=== PATIENT | male | born 1975 | race Caucasian/White ===

== ENCOUNTER 2020-04-18 14:23 | Inpatient (IN) | payer SELFPAY ==
[2020-04-18] VITALS (33 sets, daily range): BP systolic 119–196; BP diastolic 64–124; PULSE 60–93; RESP 16–19; TEMP 36.9–37; O2SAT 91–97; BMI 38.7
--- NOTE | 2020-04-18 15:21 | XR_ITS ---
PROCEDURE: XR CHEST PORTABLE CLINICAL HISTORY: chest pain COMPARISON: No exams were available for comparison FINDINGS: The cardiomediastinal silhouette and pulmonary vascularity are within normal limits. No lobar consolidation or collapse. There is blunting of the left CP angle which may be due to small pleural effusion or underlying pleural reaction. No acute bony abnormalities. IMPRESSION: Blunting of the left CP angle otherwise negative Dictated b Ronnie Franco MD 04/18/2020 16:24 Ronnie Franco MD in [place] 04/18/2020 16:24
--- NOTE | 2020-04-18 15:28 | HMH.HP ---
*Admission Date: 04/18/20 *Chief complaint: chest pain htn *History of present illness: 44 yr old male presents to office with c/o of chest pain for 1 month but soa and chest pain increasing. In office bp was 194/120 hr 84. Pt states his chest pain has increased and he can not work more than 1 hour before he becomes soa and tired. pt in office states left side chest pain. Has been monitoring bp at home and last evening it was 220/130 with chest pain. Pt admitted for cardiac work up and consult cardiology. [facility] recommends nipride drip and metoprol 25mg po q8, ekg and cardiac labs. [facility] History I have reviewed the patient's past medical history: Yes Medical History: Reports:: Depression, Hypertension *Have you ever received a pneumonia vaccine?: No *Have you received a flu vaccine this season?: Yes Other Surgeries: Yes: Other (cyst on tailbone) Amputation: No Fractures: No - *Social History Smoking Status: Current every day smoker Tobacco Type: cigars Alcohol Intake: never Substance Use Type: denies use *Occupational Status:: employed *Travel in the last 8 weeks: None - Psychiatric History Pschychiatric History:: Reports:: Depression Family Hx:: Stroke, Cancer Review of Systems - Review of Systems Review of systems:: pertinent systems reviewed and negative unless documented below - Constitutional Reports fatigue, Denies chills, Denies fever(s), Denies lack of energy - Eyes Denies blurry vision - ENT Denies bleeding gums, Denies neck lump - *Cardiovascular Reports chest pain, Reports chest pain at rest, Reports chest pain with activity, Reports shortness of breath, Reports shortness of breath with activity - *Respiratory Reports shortness of breath with activity, Denies wheezing - *Gastrointestinal Denies nausea, Denies vomiting - *Genitourinary Denies urinary frequency - *Musculoskeletal Denies body aches - Integumentary/Breasts Denies bleeding lesions, Denies rash - *Neurologic Denies abnormal hearing, Denies memory loss - Psychiatric Denies lack of enjoyment, Denies hopelessness - Endocrine Denies excessive sweating - Hematologic/Lymphatic Denies enlarged lymph nodes - Allergic/Immunologic Denies lip swelling Meds Home Medications Medication Instructions Recorded Confirmed Type hydroxyzine pamoate 25 mg capsule 25 mg PO TID PRN #90 cap 03/19/20 04/18/20 Rx buspirone 15 mg tablet 15 mg PO DAILY tab 04/18/20 04/18/20 History carvedilol 25 mg tablet 25 mg PO BID 04/18/20 04/18/20 History clonidine HCl 0.3 mg tablet 0.3 mg PO BID 04/18/20 04/18/20 History hydrochlorothiazide 25 mg tablet 25 mg PO DAILY 04/18/20 04/18/20 History paroxetine HCl 40 mg tablet 40 mg PO DAILY #30 tab 04/18/20 04/18/20 Rx risperidone 2 mg tablet 2 mg PO DAILY 04/18/20 04/18/20 History Allergies Allergy/AdvReac Type Severity Reaction Status Date / Time Unable to Assess Allergy Verified 04/18/20 13:21 Exam - Constitutional no acute distress, morbidly obese - *Routine HEENT Exam Head: Present: normocephalic Eye: Present: PERRL ENT: Present: mucous membranes moist - *Routine Neck Exam Present: supple. Absent: lymphadenopathy - *Routine Respiratory Exam Present: CTA bilaterally - *Routine Cardiovascular Exam Present: RRR - *Routine Abdominal Exam Present: soft, normoactive bowel sounds. Absent: tenderness - *Routine Extremities Exam Absent: cyanosis, clubbing, edema - *Routine Skin Exam Present: warm. Absent: rash - *Routine Neurological Exam Present: alert, oriented X3 - Routine Psychiatric Exam Present: normal affect Assessment and Plan (1) HTN (hypertension), benign Current visit: Yes Status: Acute Category: Medical Code(s): I10 - Essential (primary) hypertension (2) Chest pain Current visit: Yes Status: Acute Qualifiers: Chest pain type: chest pain on breathing Qualified Code(s): R07.1 - Chest pain on breathing Categor
--- NOTE | 2020-04-18 16:00 | P.CONPHA_ITS ---
[facility] Pharmacy VTE Monitoring - Patient Demographics Admission date: 04/18/20 Report Date: 04/18/20 Time: 16:00 Allergies/Adverse Reactions: Patient Allergies Unable to Assess Allergy (Verified 04/18/20 13:21) Height: 1.78 m Weight: 122.47 kg Patient Problems: Current Active Problems HTN (hypertension), benign (Acute) Chest pain (Acute) - VTE Risk Clinical Trial Participant: No - Prophylaxis VTE Prophylaxis Ordered?: Yes Types of VTE Prophylaxis: TEDS Knee High
[2020-04-18 16:05] LABS: Basophils # 0.1 K/mm3 (0-0.2); Basophils % 0.8 % (0.1-2.0); Eosinophils # 0.3 K/mm3 (0.0-0.4); Eosinophils % 3.5 % (0.1-12.0); Hematocrit 45.7 % (42.0-52.0); Hemoglobin 16.4 g/dL (14.1-18.0); Lymphocytes # 2.8 K/mm3 (0.7-4.5); Lymphocytes % 36.4 % (10-50); Mean Corpuscular Hemoglobin 31.7 pg (27.0-31.2); Mean Corpuscular Volume 88.1 fl (80-94); Mean Platelet Volume 7.5 fl (7.4-10.4); Monocytes # 0.4 K/mm3 (0.1-1.0); Monocytes % 5.6 % (1.7-9.3); Neutrophils # 4.2 K/mm3 (1.8-7.8); Neutrophils % 53.7 % (37.0-80.0); Platelet Count 227 K/mm3 (142-424); Red Blood Count 5.18 M/mm3 (4.60-6.20); Red Cell Distribution Width 13.2 % (11.5-17.5); White Blood Count 7.8 K/mm3 (4.8-10.8)
--- NOTE | 2020-04-18 16:06 | ECG_ITS ---
APPROVED REPORT Exam: Resting ECG HR:73 bpm ECG Measurements Heart Rate 73 AXES AL 166 P 24 QRSd 102 QRS -23 QT 446 T 35 QTc 491 <Conclusion> Normal sinus rhythm Left atrial abnormality Left ventricular hypertrophy Prolonged QT Abnormal ECG Electronically signed by : Pieter Lehman, 04/21/2020 08:31:29
[2020-04-18 16:10] LABS: Alanine Aminotransferase 31 U/L (12-78); Albumin Level 4.4 g/dl (3.5-5.0); Albumin/Globulin Ratio 1.5 (1.1-1.8); Alkaline Phosphatase 56 U/L (38-126); Anion Gap 12.2 mEq/L (5-15); Aspartate Amino Transferase 27 U/L (17-59); Bilirubin,Total 0.5 mg/dl (0.2-1.3); Blood Urea Nitrogen 17 mg/dl (9-20); Calcium 9.5 mg/dl (8.4-10.2); Carbon Dioxide 31 mmol/L (22.0-30.0); Chloride 101 mmol/L (98-107); Creatinine Clearance Estimated 117 mL/min (50-200); Estimated Glomerular Filt Rate 55 ml/min (>60); GFR (African American) 67 ML/MIN (>60); Globulin 2.9 g/dL (1.3-3.2); Glucose 118 mg/dl (74-100); Potassium 3.2 mmoL/L (3.5-5.1); Sodium 141 mmol/L (136-145); Total Protein,Serum 7.3 g/dl (6.3-8.2)
--- NOTE | 2020-04-18 16:23 | HMH.PHAINT ---
home medication reconciliation completed [facility] and pt interview
[2020-04-18 16:25] LABS: Troponin I 0.01 ng/ml (0.00-0.034)
--- NOTE | 2020-04-18 16:56 | HMH.CNCARD ---
History of Present Illness Consult date: 04/18/20 Requesting physician: Rivka Braxton Consult reason: chest pain Chief complaint: chest pain History of present illness: Is a 41-year-old white gentleman who was admitted to the hospital for chest pain. The patient states that he has been having chest pain for the last 5 to 6 months. He states he notices this more at night when he is lying down. He states that this is a pressure/sharp sensation in the left side of his chest and radiates to his left arm. He does become diaphoretic and short of breath with the chest pain. He states that this can be severe and does improve over time. The patient states that over the last month or so he has noticed that his blood pressure has elevated significantly as well. He states that his blood pressure has been as high as 220/820. He states that he just does not feel well. While speaking to me the patient gets significantly short of breath. He states that he feels like he is short of breath all the time and it is worse at night. He states he is unable to lie flat because of the shortness of breath. He states that he does have some associated edema in the lower extremities. He does take a water pill at home but states that he does not feel like this is helping. He denies any fever, chills, nausea, vomiting, diarrhea. The patient does report that he had a stress test approximately 4 years ago while living in [place]. They told him it was abnormal at that time and he probably needed stents in his heart. The patient refused any further work-up at that time and has not had any symptoms of chest pain until approximately 5 to 6 months ago. He denies a personal history or family history of coronary artery disease. He states that his brother's children do have heart issues but he is unsure what they are specifically. [facility] History I have reviewed the patient's past medical history: Yes Medical History: Reports:: Depression, Hypertension *Have you ever received a pneumonia vaccine?: No *Have you received a flu vaccine this season?: Yes Other Surgeries: Yes: Other (cyst on tailbone) Amputation: No Fractures: No - *Social History Smoking Status: Current every day smoker Tobacco Type: cigars Alcohol Intake: never Substance Use Type: denies use *Occupational Status:: employed *Travel in the last 8 weeks: None - Psychiatric History Pschychiatric History:: Reports:: Depression Family Hx:: Stroke, Cancer Meds Home Medications Medication Instructions Recorded Confirmed Type hydroxyzine pamoate 25 mg capsule 25 mg PO TID PRN #90 cap 03/19/20 04/18/20 Rx PARoxetine HCL [Paroxetine HCl] 40 mg PO DAILY 04/18/20 04/18/20 History buspirone 15 mg tablet 7.5 mg PO BID tab 04/18/20 04/18/20 History carvedilol 25 mg tablet 25 mg PO BID 04/18/20 04/18/20 History clonidine HCl 0.3 mg tablet 0.3 mg PO BID 04/18/20 04/18/20 History hydrochlorothiazide 25 mg tablet 25 mg PO DAILY 04/18/20 04/18/20 History risperidone 2 mg tablet 4 mg PO HS 04/18/20 04/18/20 History Allergies Allergy/AdvReac Type Severity Reaction Status Date / Time No Known Allergies Allergy Unverified 04/18/20 16:05 Review of Systems - Review of Systems Review of systems:: pertinent systems reviewed and negative unless documented below - Constitutional Reports fatigue - *Cardiovascular Reports chest pain, Reports chest pain at rest, Reports chest pain with activity, Reports excessive sweating, Reports shortness of breath, Reports shortness of breath with activity, Reports leg swelling, Reports radiating jaw, neck or arm pain - *Respiratory Reports shortness of breath, Reports shortness of breath with activity - *Neurologic Denies abnormal hearing, Denies memory loss Exam Vital signs and Labs for Last 24 Hours: Laboratory Results - last 24 hr 04/18/20 15:48: WBC 7.8, RBC 5.18, Hgb 16.4, Hct 45.7, MCV 88.1, MCH 31.7 H, MCHC 36.0 H, RDW 13.2, Plt Count 227, MPV 7.5, Neut % (Aut
[2020-04-18 17:41] LABS: NT Pro Brain Natriuretic Pep. 271 pg/mL (0-125)
[2020-04-18 18:20] LABS: Adenovirus,PCR Not Detected (NotDetected); Bordetella Pertussis Not Detected (NotDetected); Chlamydophila Pneumoniae, PCR Not Detected (NotDetected); Coronavirus 19, PCR Not Detected (NotDetected); Coronavirus 229E Not Detected (NotDetected); Coronavirus NL63 Not Detected (NotDetected); Coronavirus OC43 Not Detected (NotDetected); Coronovirus HKU1,PCR Not Detected (NotDetected); Human Metapneumovirus Not Detected (NotDetected); Influenza A, PCR Not Detected (NotDetected); Influenza AH1, 2009 Not Detected (NotDetected); Influenza AH1, PCR Not Detected (NotDetected); Influenza AH3,PCR Not Detected (NotDetected); Influenza B, PCR Not Detected (NotDetected); Mycoplasma Pneumoniae, PCR Not Detected (NotDetected); Parainfluenza 1, PCR Not Detected (NotDetected); Parainfluenza 2, PCR Not Detected (NotDetected); Parainfluenza 3, PCR Not Detected (NotDetected); Parainfluenza 4, PCR Not Detected (NotDetected); Respiratory Syncytial Virus Not Detected (NotDetected); Rhinovirus/Enterovirus Not Detected (NotDetected)
[2020-04-18 19:38] LABS: Troponin I 0.02 ng/ml (0.00-0.034)
--- NOTE | 2020-04-18 20:06 | PC.NURSE ---
pt has felt ok since arrival to the floor. bp have been fluctuating, drip infusing at a rate of 0.3mcg/kg/min, 11mg/hr verified with Vasyl Edgar RN. tolerating well. report given to Kaila CAMPBELL
--- NOTE | 2020-04-18 20:42 | PC.NURSE ---
1900 received report on patient current nipride drip rate .3 mcq/kg/min.
--- NOTE | 2020-04-18 20:43 | PC.NURSE ---
1999 dr. lombardo paged regarding home medications. new orders received, verified and repeated.
[2020-04-18 21:46] LABS: Troponin I 0.02 ng/ml (0.00-0.034)
--- NOTE | 2020-04-18 22:50 | PC.NURSE ---
2044 nipride drip decreased to .2mcq/kg/min
--- NOTE | 2020-04-18 23:43 | PC.NURSE ---
2241 nipride drip decreased to .1mcq/kg/min
[2020-04-19] VITALS (90 sets, daily range): BP systolic 132–177; BP diastolic 68–115; PULSE 60–96; RESP 15–18; TEMP 36.8–36.9; O2SAT 88–98; BMI 36.8
--- NOTE | 2020-04-19 | IR_ITS ---
APPROVED REPORT Patient Location: Inpatient PROCEDURES Left heart catheterization Left ventriculogram Selective coronary angiogram Bilateral selective renal angiogram INDICATION Malignant hypertension, Abnormal echocardiogram, Unstable angina, Renovascular hypertension suspect renal artery stenosis Informed consent was obtained prior to the procedure. COMPLICATIONS NONE Estimated Blood Loss: LESS THAN 10 ML TECHNIQUE 1% lidocaine used anesthetize the right groin the right femoral artery was accessed via the Salinger technique and a 4 Taiwanese sheath was placed in the right femoral artery. A JL4 JR4 catheter were used to perform left heart catheterization left ventriculogram selective coronary angiography as well as bilateral selective renal angiography. IV labetalol was given x2 in order to reduce critical hypertension. At the end of the procedure the patient was transferred to the postop holding her in stable condition for sheath removal ANGIOGRAPHIC RESULTS The left main artery Normal The left anterior descending artery Mild 10% luminal irregularities The circumflex artery Nondominant with mild luminal irregularities The right coronary artery Is a large dominant vessel with mild mid vessel 10% luminal irregularity The HUTCHINS ventriculogram reveals Dilated ventricle reduced at 40 to 45% The left ventricular end-diastolic pressure Severely elevated at 40 mmHg Right renal artery singular normal Left renal artery singular normal IMPRESSION Mild nonocclusive coronary artery disease Dilated ventricle with reduced ejection fraction consistent with hypertensive heart disease and hypertensive cardiomyopathy Severely elevated LVEDP consistent with severe hypertensive heart disease Normal renal arteries PLAN 1. Medical management Electronically signed by : Jin Mckinney, 04/19/2020 14:50:37
--- NOTE | 2020-04-19 01:08 | PC.NURSE ---
no signs or symptoms up to this time of cyanide poisoning from nipride infusion.
--- NOTE | 2020-04-19 02:25 | PC.NURSE ---
0030 nipride drip titrated off.
--- NOTE | 2020-04-19 03:03 | PC.NURSE ---
0215 nipride drip restarted at .1 mcq/kg/min.
--- NOTE | 2020-04-19 03:03 | PC.NURSE ---
0300 nipride drip increased to .2 mcq/kg/min
--- NOTE | 2020-04-19 05:46 | PC.NURSE ---
surgical checklist started, patient hair clipped, patient set up for bed bath with hibicleanz. patient remains on nipride at .2 mcq/kg/min.
--- NOTE | 2020-04-19 06:11 | CA_ITS ---
APPROVED REPORT EXAM: Comprehensive 2D, Doppler, and color-flow Echocardiogram Concrete Gun Operator: Julissa Kelly CRT Ht: 5 ft 10 in Wt: 270lbs BSA: 2.37 BP: 140/87 mmHg Indications: Chest Pain, Shortness of Breath, Obesity, Peripheral Edema, CAD, smoker 2D Dimensions LVOT 1.80 cm (M/F) 1.5-2.5 M-Mode Dimensions RVDd 2.21 cm (0.9-2.6) LVDd 6.18 cm (3.5-5.7) LVDs 4.43 cm (3.5-5.7) IVSd 2.21 cm (0.6-1.1) PWd 0.64 cm (0.6-1.1) EF (Teich) 53.70% FS 28.30% EDV (Teich) 192.60 mL ESV (Teich) 89.10 mL LV Diastology E/A Ratio 0.82 Mitral Valve MV A Velocity 83.00 (40-130 cm/s) Left Ventricle Left atrium is mildly enlarged, left ventricle is normal size, mild concentric left ventricular hypertrophy, visually estimated ejection fraction 50%, there appears to be mild hypokinesis involving the basal septum and inferior basal wall. Endocardial surfaces are poorly visualized. Grade 1 diastolic dysfunction seen with tissue Doppler evidence of raise left atrial pressure. Right Ventricle Right atrium and right ventricular normal size and contractility. Aortic Valve Aortic valve is thickened and calcified, there is no aortic stenosis, there is mild aortic insufficiency. Mitral Valve Mitral valve is minimally thickened, there is mild mitral regurgitation. Tricuspid Valve Tricuspid valve is grossly normal, there is mild tricuspid regurgitation. Pulmonic Valve Pulmonic valve is poorly visualized. Great Vessels Aortic root is normal size. Pericardium No significant pericardial effusion noted. Conclusion 1. Mildly enlarged left atrium, normal left ventricular size, mild concentric left ventricular hypertrophy, visually estimated ejection fraction 50% with segmental wall motion abnormality described above, although endocardial surfaces are poorly visualized, grade 1 diastolic dysfunction seen with tissue Doppler evidence of raise left atrial pressure. 2. Mild aortic, mild mitral and tricuspid regurgitation. 3. No significant pericardial effusion noted. Electronically signed by : Navneet Mtz, 04/19/2020 11:54:26
[2020-04-19 06:28] LABS: Basophils % 0.3 % (0.1-2.0); Eosinophils # 0.3 K/mm3 (0.0-0.4); Eosinophils % 2.9 % (0.1-12.0); Hematocrit 46.2 % (42.0-52.0); Hemoglobin 16.4 g/dL (14.1-18.0); Lymphocytes # 2.2 K/mm3 (0.7-4.5); Lymphocytes % 22.4 % (10-50); Mean Corpuscular HGB Conc 35.5 g/dL (31.8-35.4); Mean Corpuscular Hemoglobin 31.3 pg (27.0-31.2); Mean Corpuscular Volume 88.1 fl (80-94); Mean Platelet Volume 7.6 fl (7.4-10.4); Monocytes # 0.6 K/mm3 (0.1-1.0); Monocytes % 6.4 % (1.7-9.3); Neutrophils # 6.8 K/mm3 (1.8-7.8); Neutrophils % 68.1 % (37.0-80.0); Platelet Count 197 K/mm3 (142-424); Red Blood Count 5.25 M/mm3 (4.60-6.20); Red Cell Distribution Width 13.7 % (11.5-17.5)
[2020-04-19 06:43] LABS: Alanine Aminotransferase 31 U/L (12-78); Albumin Level 3.9 g/dl (3.5-5.0); Albumin/Globulin Ratio 1.4 (1.1-1.8); Alkaline Phosphatase 44 U/L (38-126); Anion Gap 11.8 mEq/L (5-15); Aspartate Amino Transferase 32 U/L (17-59); Bilirubin,Total 0.9 mg/dl (0.2-1.3); Blood Urea Nitrogen 17 mg/dl (9-20); Calcium 8.8 mg/dl (8.4-10.2); Carbon Dioxide 29 mmol/L (22.0-30.0); Chloride 101 mmol/L (98-107); Chol/HDL Ratio 4.8 (1-3.5); Cholesterol 203 mg/dl (140-200); Creatinine Clearance Estimated 173 mL/min (50-200); Estimated Glomerular Filt Rate 92 ml/min (>60); GFR (African American) 111 ML/MIN (>60); Globulin 2.8 g/dL (1.3-3.2); Glucose 145 mg/dl (74-100); HDL Cholesterol 42 mg/dl (40-60); Sodium 139 mmol/L (136-145); Total Protein,Serum 6.7 g/dl (6.3-8.2); Triglycerides 168 mg/dl (30-150); VLDL Cholesterol 34 mg/dL (0-40)
[2020-04-19 06:53] LABS: Potassium 2.8 mmoL/L (3.5-5.1)
[2020-04-19 06:54] LABS: Direct LDL Cholesterol 127.78 mg/dL (100-129)
--- NOTE | 2020-04-19 07:01 | PC.NURSE ---
3873 dr. munira shaffer for critical lab value
--- NOTE | 2020-04-19 08:23 | HMH.PNCARD ---
Subjective Date: 04/19/20 Time: 08:23 Principal diagnosis: chest pain, HTN Interval history: 44 yo WM in bed in NAD. Slight headache but no chest pain. Restarted on nipride gtt overnight due to elevated BP. Discussed recommendation for LHC and possible renal angiogram today. Questions answered. Exam Vital signs and Labs for Last 24 Hours: Temp Pulse Resp BP Pulse Ox 98.5 F 70 16 140/98 H 98 04/19/20 04:00 04/19/20 08:00 04/19/20 07:45 04/19/20 08:00 04/19/20 08:00 Laboratory Results - last 24 hr 04/18/20 15:48: WBC 7.8, RBC 5.18, Hgb 16.4, Hct 45.7, MCV 88.1, MCH 31.7 H, MCHC 36.0 H, RDW 13.2, Plt Count 227, MPV 7.5, Neut % (Auto) 53.7, Lymph % (Auto) 36.4, [place] % (Auto) 5.6, Eos % (Auto) 3.5, Baso % (Auto) 0.8, Neut # (Auto) 4.2, Lymph # (Auto) 2.8, [place] # (Auto) 0.4, Eos # (Auto) 0.3, Baso # (Auto) 0.1 04/18/20 15:48: Sodium 141, Potassium 3.2 L, Chloride 101, Carbon Dioxide 31 H, Anion Gap 12.2, BUN 17, Creatinine 1.40 H, Estimated Creat Clear 117, Estimated GFR 55 L, Est GFR ( Amer) 67, Glucose 118 H, Calcium 9.5, Total Bilirubin 0.5, AST 27, ALT 31, Alkaline Phosphatase 56, Troponin I 0.01, Total Protein 7.3, Albumin 4.4, Globulin 2.9, Albumin/Globulin Ratio 1.5 04/18/20 15:48: NT-Pro-B Natriuret Pep 271 H 04/18/20 18:03: Chlamy pneumoniae PCR Not detected, Adenovirus (PCR) Not detected, B. pertussis DNA (PCR) Not detected, Coronavirus OC43 (PCR) Not detected, Coronavirus HKU1 (PCR) Not detected, Coronavirus 229E (PCR) Not detected, COVID-19 PCR Not detected, Coronavirus NL63 (PCR) Not detected, Human Metapneumovir PCR Not detected, Influenza A (H1) PCR Not detected, Influ A (H1N1/09) PCR Not detected, Influenza A (H3) PCR Not detected, Influenza Type A (PCR) Not detected, Influenza Type B (PCR) Not detected, M. pneumoniae (PCR) Not detected, Parainfluenza 1 (PCR) Not detected, Parainfluenza 2 (PCR) Not detected, Parainfluenza 3 (PCR) Not detected, Parainfluenza 4 (PCR) Not detected, RSV (PCR) Not detected, Entero/Rhino (PCR) Not detected 04/18/20 18:40: Troponin I 0.02 04/18/20 21:20: Troponin I 0.02 04/19/20 05:28: WBC 10.0 D, RBC 5.25, Hgb 16.4, Hct 46.2, MCV 88.1, MCH 31.3 H, MCHC 35.5 H, RDW 13.7, Plt Count 197, MPV 7.6, Neut % (Auto) 68.1, Lymph % (Auto) 22.4, [place] % (Auto) 6.4, Eos % (Auto) 2.9, Baso % (Auto) 0.3, Neut # (Auto) 6.8, Lymph # (Auto) 2.2, [place] # (Auto) 0.6, Eos # (Auto) 0.3, Baso # (Auto) 0.0 04/19/20 05:28: Sodium 139, Potassium 2.8 L*, Chloride 101, Carbon Dioxide 29, Anion Gap 11.8, BUN 17, Creatinine 0.90 D, Estimated Creat Clear 173, Estimated GFR 92, Est GFR ( Amer) 111 D, Glucose 145 H D, Calcium 8.8, Total Bilirubin 0.9, Direct Bilirubin 0.0, AST 32, ALT 31, Alkaline Phosphatase 44, Total Protein 6.7, Albumin 3.9 D, Globulin 2.8, Albumin/Globulin Ratio 1.4, Triglycerides 168 H, Cholesterol 203 H, LDL Cholesterol Direct 127.78, VLDL Cholesterol 34, HDL Cholesterol 42, Cholesterol/HDL Ratio 4.8 H I & O for Last 24 hours: Intake & Output 04/16/20 04/17/20 04/18/20 04/19/20 11:59 11:59 11:59 11:59 Intake Total 650 / 650 Output Total 2925 / 2925 Balance -2275 / -2275 Weight 257 lb 7.999 oz - *Routine HEENT Exam Head: Present: normocephalic Eye: Present: EOMI, PERRL ENT: Present: mucous membranes moist - *Routine Respiratory Exam Present: CTA bilaterally. Absent: accessory muscle use, rales, rhonchi, wheezes - *Routine Cardiovascular Exam Present: RRR. Absent: murmur, gallop, rubs - *Routine Extremities Exam Absent: edema, calf tenderness - *Routine Neurological Exam Present: alert, oriented X3, moving all extremities Progress Note: A&P (1) Unstable angina Status: Acute Current Visit: Yes (2) Abnormal stress test Status: Acute Current Visit: Yes (3) Malignant hypertension Status: Acute Current Visit: Yes Assessment and Plan for All Diagnoses:: 1. HTN, malignant, on nipride and beta farhad. Reportedly on coreg at home so
--- NOTE | 2020-04-19 09:40 | PC.NURSE ---
patient gtt currently set at 0.5mcg/kg/min. it has been titrated up in relation to patient bp. will titrate up or down based off of bp and goal
--- NOTE | 2020-04-19 10:32 | PC.NURSE ---
increased nitroprusside to 0.7mcg/kg/min
--- NOTE | 2020-04-19 13:19 | PC.NURSE ---
increased nitroprusside rate to 0.9mcg/kg/min
--- NOTE | 2020-04-19 14:12 | PC.NURSE ---
left for cathlab at this time
--- NOTE | 2020-04-19 16:03 | PC.NURSE ---
cathlab brought patient back up, nitroprusside is currently running at 0.25mcg/kg/min. will currently leave at this rate
--- NOTE | 2020-04-19 16:25 | PC.NURSE ---
verified with dr. boland that it was okay to order cardiac diet for patient
--- NOTE | 2020-04-19 16:29 | PC.NURSE ---
this shift patient has done well, body systems within normal limits. cath site to r femoral site, dressing is c.d.i no signs of hematoma or bruising. currently lying flat. tolerating drinks at this time and requesting food. bp remains elevated. rings out as needed, uses urinal. will continue to monitor.
--- NOTE | 2020-04-19 17:40 | HMH.ACPN2 ---
Internal Medicine - PN: Subj *Date: 04/19/20 *Time: 08:00 Interval history: pt states he still having chest pain Exam Vital signs and Labs for Last 24 Hours: Temp Pulse Resp BP Pulse Ox 98.3 F 64 16 142/68 H 93 L 04/19/20 08:15 04/19/20 14:00 04/19/20 14:00 04/19/20 14:00 04/19/20 14:00 Laboratory Results - last 24 hr 04/18/20 15:48: NT-Pro-B Natriuret Pep 271 H 04/18/20 18:03: Chlamy pneumoniae PCR Not detected, Adenovirus (PCR) Not detected, B. pertussis DNA (PCR) Not detected, Coronavirus OC43 (PCR) Not detected, Coronavirus HKU1 (PCR) Not detected, Coronavirus 229E (PCR) Not detected, COVID-19 PCR Not detected, Coronavirus NL63 (PCR) Not detected, Human Metapneumovir PCR Not detected, Influenza A (H1) PCR Not detected, Influ A (H1N1/09) PCR Not detected, Influenza A (H3) PCR Not detected, Influenza Type A (PCR) Not detected, Influenza Type B (PCR) Not detected, M. pneumoniae (PCR) Not detected, Parainfluenza 1 (PCR) Not detected, Parainfluenza 2 (PCR) Not detected, Parainfluenza 3 (PCR) Not detected, Parainfluenza 4 (PCR) Not detected, RSV (PCR) Not detected, Entero/Rhino (PCR) Not detected 04/18/20 18:40: Troponin I 0.02 04/18/20 21:20: Troponin I 0.02 04/19/20 05:28: WBC 10.0 D, RBC 5.25, Hgb 16.4, Hct 46.2, MCV 88.1, MCH 31.3 H, MCHC 35.5 H, RDW 13.7, Plt Count 197, MPV 7.6, Neut % (Auto) 68.1, Lymph % (Auto) 22.4, [place] % (Auto) 6.4, Eos % (Auto) 2.9, Baso % (Auto) 0.3, Neut # (Auto) 6.8, Lymph # (Auto) 2.2, [place] # (Auto) 0.6, Eos # (Auto) 0.3, Baso # (Auto) 0.0 04/19/20 05:28: Sodium 139, Potassium 2.8 L*, Chloride 101, Carbon Dioxide 29, Anion Gap 11.8, BUN 17, Creatinine 0.90 D, Estimated Creat Clear 173, Estimated GFR 92, Est GFR ( Amer) 111 D, Glucose 145 H D, Calcium 8.8, Total Bilirubin 0.9, Direct Bilirubin 0.0, AST 32, ALT 31, Alkaline Phosphatase 44, Total Protein 6.7, Albumin 3.9 D, Globulin 2.8, Albumin/Globulin Ratio 1.4, Triglycerides 168 H, Cholesterol 203 H, LDL Cholesterol Direct 127.78, VLDL Cholesterol 34, HDL Cholesterol 42, Cholesterol/HDL Ratio 4.8 H I & O for Last 24 hours: Intake & Output 04/17/20 04/18/20 04/19/20 04/20/20 11:59 11:59 11:59 11:59 Intake Total 650 / 650 Output Total 3375 / 3375 1350 / 1350 Balance -2725 / -2725 -1350 / -1350 Weight 257 lb 7.999 oz - Constitutional no acute distress, morbidly obese - *Routine HEENT Exam Head: Present: normocephalic Eye: Present: PERRL ENT: Present: mucous membranes moist - *Routine Neck Exam Present: supple. Absent: lymphadenopathy - *Routine Respiratory Exam Present: CTA bilaterally - *Routine Cardiovascular Exam Present: RRR - *Routine Abdominal Exam Present: soft, normoactive bowel sounds. Absent: tenderness - *Routine Extremities Exam Present: normal capillary refill. Absent: cyanosis, clubbing, edema - *Routine Skin Exam Present: warm. Absent: rash - *Routine Neurological Exam Present: alert, oriented X3 - Routine Psychiatric Exam Present: normal affect Assessment and Plan (1) Unstable angina Current visit: Yes Status: Acute Category: Medical Code(s): I20.0 - Unstable angina (2) Abnormal stress test Current visit: Yes Status: Acute Category: Medical Code(s): R94.39 - Abnormal result of other cardiovascular function study (3) Malignant hypertension Current visit: Yes Status: Acute Category: Medical Code(s): I10 - Essential (primary) hypertension - Assessment and plan all Dx Assessment and Plan for all problems:: rounded with dr boland all orders per dr boland
--- NOTE | 2020-04-19 17:46 | PC.NURSE ---
increased nitroprusside to 0.3mcg/kg/min
--- NOTE | 2020-04-19 19:26 | PC.NURSE ---
noemi martinez stated we could reorder patient paxil and vistaril.
--- NOTE | 2020-04-19 21:24 | PC.NURSE ---
2014 nipride drip increased to .7 mcq/kg/min
--- NOTE | 2020-04-19 21:49 | PC.NURSE ---
1900 received patient on nipride drip at .5 mcq/kg/min.
[2020-04-20] VITALS (87 sets, daily range): BP systolic 118–188; BP diastolic 69–123; PULSE 72–106; RESP 13–20; TEMP 36.7–37.2; O2SAT 2–96; BMI 35.9
--- NOTE | 2020-04-20 01:35 | PC.NURSE ---
0120 nipride drip increased to .9 mcq/kg/min. right femoral cath site without hematoma and soft to touch. denies pain.
--- NOTE | 2020-04-20 02:10 | PC.NURSE ---
pt has complained of slight headache t/o shift, denies n/v, dizziness, has been calm and oriented, HR from 80's to low 100's, nipride at 0.7 mcg/kg/min
--- NOTE | 2020-04-20 02:14 | PC.NURSE ---
nipride drip decreased to .7 mcq/kg/min
--- NOTE | 2020-04-20 02:34 | PC.NURSE ---
nipride drip increased back to .9 mcq/kg/min
--- NOTE | 2020-04-20 04:20 | PC.NURSE ---
0330 nipride drip increased to 1.1mcq/kg/min.
--- NOTE | 2020-04-20 04:20 | PC.NURSE ---
nipride drip increased to 1.3 mcq/kg/min
--- NOTE | 2020-04-20 04:34 | PC.NURSE ---
Addendum entered by Kaila Santizo RN 04/20/20 06:52: nipe increased to 1.5 mcq/kg/min Original Note: patients blood pressure significantly higher when lying on right side than left. nipride at 1.3 mcq/kg/min. patient educated and instructed to lay on left side
--- NOTE | 2020-04-20 05:27 | PC.NURSE ---
o2 sats sustaining 86-89% on r/a while sleeping. o2 at 2l nc placed.
--- NOTE | 2020-04-20 06:01 | PC.NURSE ---
o2 sats drop down to 85% and sustains 86-89% while sleeping, patient refuses to wear oxygen.
--- NOTE | 2020-04-20 07:18 | PC.NURSE ---
0710 brigitte bruner at bedside, patient assessed and chart reviewed. awaiting further orders
--- NOTE | 2020-04-20 07:22 | HMH.PNCARD ---
Subjective Date: 04/20/20 Time: 07:22 Principal diagnosis: chest pain, HTN Interval history: 44-year-old white male sitting at bedside eating breakfast in no acute distress. Nurses relate patient is still on night pride drip overnight. Patient denies any chest pain, pressure or tightness. Cardiac cath results reviewed showing mild CAD with normal renal arteries. Evidence of hypertensive cardiomyopathy noted with ejection fraction estimated about 45%. Echocardiogram shows normal LV size with EF of 50% with basal septum and inferior wall abnormalities. Grade 1 diastolic dysfunction noted. Exam Vital signs and Labs for Last 24 Hours: Temp Pulse Resp BP Pulse Ox 98.3 F 99 H 18 120/95 H 96 04/20/20 04:00 04/20/20 07:15 04/20/20 07:15 04/20/20 07:15 04/20/20 07:15 I & O for Last 24 hours: Intake & Output 04/17/20 04/18/20 04/19/20 04/20/20 11:59 11:59 11:59 11:59 Intake Total 650 / 650 3628 / 3628 Output Total 3375 / 3375 4150 / 4150 Balance -2725 / -2725 -522 / -522 Weight 257 lb 7.999 oz 250 lb 8 oz - *Routine HEENT Exam Head: Present: normocephalic Eye: Present: EOMI, PERRL ENT: Present: mucous membranes moist - *Routine Respiratory Exam Present: CTA bilaterally. Absent: accessory muscle use, rales, rhonchi, wheezes - *Routine Cardiovascular Exam Present: RRR. Absent: murmur, gallop, rubs - *Routine Extremities Exam Absent: edema, calf tenderness - *Routine Neurological Exam Present: alert, oriented X3, moving all extremities Progress Note: A&P (1) Unstable angina Status: Acute Current Visit: Yes (2) Abnormal stress test Status: Acute Current Visit: Yes (3) Malignant hypertension Status: Acute Current Visit: Yes (4) Hypertensive cardiomyopathy Status: Acute Current Visit: Yes (5) Diastolic dysfunction with acute on chronic heart failure Status: Acute Current Visit: Yes Assessment and Plan for All Diagnoses:: 1. Hypertensive cardiomyopathy with acute on chronic diastolic heart failure. Patient has had improvement with IV Lasix. Will increase carvedilol and try to wean the patient off nipride drip today. Continue Avapro 150 mg BID. Will add verapamil 120 mg BID due to elevated HR and severe hypertensive heart disease noted on cath but will try to wean off in the near future due to mild cardiomyopathy. Stressed medication compliance and dietary salt restriction. 2. Mild coronary artery disease. 3. Normal renal arteries. If able to discontinue Nipride today then he should be able to go home today.
--- NOTE | 2020-04-20 08:04 | PC.NURSE ---
0730- BP 167/100, HR 89, nipride titrated to 2mcg/kg/min 0800- BP 118/80, HR 92, nipride titrated to 1.5mcg/kg/min
[2020-04-20 08:20] LABS: Chloride 106 mmol/L (98-107); Potassium 3.5 mmoL/L (3.5-5.1); Sodium 137 mmol/L (136-145)
[2020-04-20 08:22] LABS: Blood Urea Nitrogen 13 mg/dl (9-20); Creatinine Clearance Estimated 168 mL/min (50-200); Estimated Glomerular Filt Rate 92 ml/min (>60); GFR (African American) 111 ML/MIN (>60)
--- NOTE | 2020-04-20 08:22 | HMH.ACPN2 ---
Internal Medicine - PN: Subj *Date: 04/20/20 *Time: 08:22 Exam Vital signs and Labs for Last 24 Hours: Temp Pulse Resp BP Pulse Ox 98.3 F 96 H 18 146/98 H 95 04/20/20 04:00 04/20/20 07:45 04/20/20 07:45 04/20/20 07:45 04/20/20 07:45 I & O for Last 24 hours: Intake & Output 04/17/20 04/18/20 04/19/20 04/20/20 23:59 23:59 23:59 23:59 Intake Total 650 / 650 2410 / 2410 1621 / 1621 Output Total 2325 / 2925 4500 / 4500 700 / 700 Balance -1675 / -2275 -2090 / -2090 921 / 921 Weight 270 lb 257 lb 7.999 oz 250 lb 8 oz Assessment and Plan (1) Unstable angina Current visit: Yes Status: Acute Category: Medical Code(s): I20.0 - Unstable angina (2) Abnormal stress test Current visit: Yes Status: Acute Category: Medical Code(s): R94.39 - Abnormal result of other cardiovascular function study (3) Malignant hypertension Current visit: Yes Status: Acute Category: Medical Code(s): I10 - Essential (primary) hypertension (4) Hypertensive cardiomyopathy Current visit: Yes Status: Acute Category: Medical Code(s): I11.9 - Hypertensive heart disease without heart failure; I43 - Cardiomyopathy in diseases classified elsewhere (5) Diastolic dysfunction with acute on chronic heart failure Current visit: Yes Status: Acute Category: Medical Code(s): I50.33 - Acute on chronic diastolic (congestive) heart failure
[2020-04-20 08:23] LABS: Anion Gap 11.5 mEq/L (5-15); Calcium 8.8 mg/dl (8.4-10.2); Carbon Dioxide 23 mmol/L (22.0-30.0); Glucose 256 mg/dl (74-100); Magnesium 1.8 mg/dl (1.6-2.3)
--- NOTE | 2020-04-20 09:04 | PC.NURSE ---
0900-BP 126/77, HR 98, Nipride titrated to 1mcg/kg/min
--- NOTE | 2020-04-20 09:23 | SW/DCPLANNER ---
I have notified Rossy Clement regarding this patients self-pay status. This patient could discharge home later today.
--- NOTE | 2020-04-20 09:35 | PC.NURSE ---
increased nitroprusside up to 1.5mcg/kg/min
--- NOTE | 2020-04-20 10:05 | PC.NURSE ---
decreased drip to 1mcg/kg/min. will continue to titrate based off of bp
--- NOTE | 2020-04-20 10:13 | PC.NURSE ---
spoke with brigitte fox who stated to titrate nitroprusside drip to keep systolic <160 and dystolic <90
--- NOTE | 2020-04-20 11:04 | PC.NURSE ---
decreased drip down to 0.8mcg/kg/min
--- NOTE | 2020-04-20 12:40 | PC.NURSE ---
1145 patient drip turned down to 0.6mcg/kg/min
--- NOTE | 2020-04-20 13:18 | PC.NURSE ---
decreased drip to 0.4mcg/kg/min
--- NOTE | 2020-04-20 13:28 | PC.NURSE ---
decreased drip to 0.2mcg/kg/min
--- NOTE | 2020-04-20 14:53 | PC.NURSE ---
brigitte fox called stating to give patient 50mg of aldactone bid. first dose now
--- NOTE | 2020-04-20 14:53 | PC.NURSE ---
patient hdrip has been increased to 0.6mcg/kg/min
--- NOTE | 2020-04-20 15:38 | PC.NURSE ---
increased nitroprusside drip to 1mcg/kg/min. manual bp 188/110
--- NOTE | 2020-04-20 17:21 | PC.NURSE ---
increased nitroprusside to 1/5mcg/kg/min. patient has done well this shift. bp has remained high. has been anxious to go home. has moved around in room. other vitals have been stable. groin site has remained within normal limits. no complaints. patient using urinal frequently
--- NOTE | 2020-04-20 18:53 | PC.NURSE ---
at this time decreased drip down to 1mcg/kg/min
[2020-04-21] VITALS (22 sets, daily range): BP systolic 129–181; BP diastolic 69–112; PULSE 60–99; RESP 17–20; TEMP 36.7–36.9; O2SAT 90–95; BMI 36.3
--- NOTE | 2020-04-21 04:32 | PC.NURSE ---
He has been resting in bed. His continues on nipride gtt. His blood pressure has been within the goal limits at times but when gtt is weaned slightly then his BP increases again. His O2 sat decreased to 86% on RA while he was asleep. He was placed on 2LPM n/c. NSR on telemetry. He denies pain. Capillary refill <3. Positive radial and pedal pulses. He has been voicing the want to get up and exercise. He spoke with someone on the phone last night. His speech is clear. Cath site is [facility].
--- NOTE | 2020-04-21 09:22 | PC.NURSE ---
Rounded w/ Dr. Salgado. Pt wishful to go home today. Continues on Nipride gtt, speak to pharmacy about adding Clonodine to pt's current meds to assist w/ BP control.
--- NOTE | 2020-04-21 10:02 | HMH.ACPN2 ---
Internal Medicine - PN: Subj *Date: 04/21/20 *Time: 10:02 Interval history: doing better - wean off drip Exam Vital signs and Labs for Last 24 Hours: Temp Pulse Resp BP Pulse Ox 98.0 F 77 18 129/82 94 L 04/21/20 08:00 04/21/20 08:00 04/21/20 08:00 04/21/20 08:00 04/21/20 08:00 I & O for Last 24 hours: Intake & Output 04/18/20 04/19/20 04/20/20 04/21/20 11:59 11:59 11:59 11:59 Intake Total 650 / 650 4031 / 4031 2489 / 2489 Output Total 3375 / 3375 4150 / 4150 5575 / 5575 Balance -2725 / -2725 -119 / -119 -3086 / -3086 Weight 257 lb 7.999 oz 250 lb 8 oz 253 lb 7 oz - Constitutional no acute distress, obese - *Routine HEENT Exam Head: Present: normocephalic Eye: Present: EOMI, PERRL ENT: Present: mucous membranes dry - *Routine Neck Exam Present: supple - *Routine Respiratory Exam Present: CTA bilaterally - *Routine Cardiovascular Exam Present: RRR, murmur - *Routine Abdominal Exam Present: soft - *Routine Extremities Exam Present: full ROM - *Routine Skin Exam Present: intact - *Routine Neurological Exam Present: alert, CN II-XII intact - Routine Psychiatric Exam Present: normal affect Assessment and Plan (1) Unstable angina Current visit: Yes Status: Acute Category: Medical Code(s): I20.0 - Unstable angina (2) Abnormal stress test Current visit: Yes Status: Acute Category: Medical Code(s): R94.39 - Abnormal result of other cardiovascular function study (3) Malignant hypertension Current visit: Yes Status: Acute Category: Medical Code(s): I10 - Essential (primary) hypertension (4) Hypertensive cardiomyopathy Current visit: Yes Status: Acute Category: Medical Code(s): I11.9 - Hypertensive heart disease without heart failure; I43 - Cardiomyopathy in diseases classified elsewhere (5) Diastolic dysfunction with acute on chronic heart failure Current visit: Yes Status: Acute Category: Medical Code(s): I50.33 - Acute on chronic diastolic (congestive) heart failure (6) Obesity (BMI 30-39.9) Current visit: Yes Status: Acute Category: Medical Code(s): E66.9 - Obesity, unspecified
[2020-04-21 10:30] LABS: Hemoglobin A1C 6.8 % (4.0-6.0)
--- NOTE | 2020-04-21 10:58 | PC.NURSE ---
CALLED AND STATED TO STOP THE NITROPRUSSIDE DRIP FOR NOW AND START CLONIDINE 0.1 MG BID. NOTIFY MARYBETH IBARRA AT 1300 IN THE [facility] TO UPDATE ON HOW PT WAS DOING AFTER STOPPING DRIP. PT IS VERY ANXIOUS TO GET HOME AND STATES I FEEL GREAT. I'M READY TO GO HOME AND GET BACK TO WORK. IF PT DOES OKAY OFF THE DRIP IS OKAY WITH MARYBETH IBARRA DISCHARGING PT HOME WITH FOLLOW UP APPOINTMENT.
--- NOTE | 2020-04-21 14:57 | PC.NURSE ---
PT WAS ABLE TO TOLERATE TAKING A SHOWER THIS SHIFT. ALERT AND ORIENTED X4. PT STATES HE REALLY WANTS TO GO HOME AND DOES NOT WANT TO GO BACK ON THE DRIP. AFTER TAKING SHOWER. PT'S BP IS NOW 154/103. PT STATES HIS BP IS NEVER THAT LOW AT HOME AND DOES NOT FEEL LIKE IT COULD GET ANY BETTER. MARYBETH IBARRA NOTIFIED AND SHE STATED SHE WOULD BE UP TO THE FLOOR TO DISCHARGE PT THIS AFTERNOON IF PT IS STILL FEELING OKAY.
--- NOTE | 2020-04-21 16:26 | PC.NURSE ---
PT IS SITTING UP IN THE CHAIR. MANUAL BP 165/112. PT IS STILL NOT CONCERNED AND IS STILL WAITING TO BE TOLD HE CAN BE DISCHARGED. NOTIFIED MARYBETH IBARRA IN THE [facility].
--- NOTE | 2020-04-21 16:27 | HMH.DCSUM ---
General - General Admission date:: 04/18/20 Discharge date: 04/21/20 HPI HPI: 44 yr old male presents to office with c/o of chest pain for 1 month but soa and chest pain increasing. In office bp was 194/120 hr 84. Pt states his chest pain has increased and he can not work more than 1 hour before he becomes soa and tired. pt in office states left side chest pain. Has been monitoring bp at home and last evening it was 220/130 with chest pain. Pt admitted for cardiac work up and consult cardiology. Dinesh informed of admit recommends nipride drip and metoprol 25mg po q8, ekg and cardiac labs. Hospital Course Hospital Course: Laboratory Tests 04/18/20 04/18/20 04/18/20 15:48 15:48 15:48 WBC 7.8 RBC 5.18 Hgb 16.4 Hct 45.7 MCV 88.1 MCH 31.7 H MCHC 36.0 H RDW 13.2 Plt Count 227 MPV 7.5 Neut % (Auto) 53.7 Lymph % (Auto) 36.4 [place] % (Auto) 5.6 Eos % (Auto) 3.5 Baso % (Auto) 0.8 Neut # (Auto) 4.2 Lymph # (Auto) 2.8 [place] # (Auto) 0.4 Eos # (Auto) 0.3 Baso # (Auto) 0.1 Sodium 141 Potassium 3.2 L Chloride 101 Carbon Dioxide 31 H Anion Gap 12.2 BUN 17 Creatinine 1.40 H Estimated Creat Clear 117 Estimated GFR 55 L Est GFR ( Amer) 67 Glucose 118 H Hemoglobin A1c Calcium 9.5 Magnesium Total Bilirubin 0.5 Direct Bilirubin AST 27 ALT 31 Alkaline Phosphatase 56 Troponin I 0.01 NT-Pro-B Natriuret Pep 271 H Total Protein 7.3 Albumin 4.4 Globulin 2.9 Albumin/Globulin Ratio 1.5 Triglycerides Cholesterol LDL Cholesterol Direct VLDL Cholesterol HDL Cholesterol Cholesterol/HDL Ratio Chlamy pneumoniae PCR Adenovirus (PCR) B. pertussis DNA (PCR) Coronavirus OC43 (PCR) Coronavirus HKU1 (PCR) Coronavirus 229E (PCR) COVID-19 PCR Coronavirus NL63 (PCR) Human Metapneumovir PCR Influenza A (H1) PCR Influ A (H1N1/09) PCR Influenza A (H3) PCR Influenza Type A (PCR) Influenza Type B (PCR) M. pneumoniae (PCR) Parainfluenza 1 (PCR) Parainfluenza 2 (PCR) Parainfluenza 3 (PCR) Parainfluenza 4 (PCR) RSV (PCR) Entero/Rhino (PCR) 04/18/20 04/18/20 04/18/20 18:03 18:40 21:20 WBC RBC Hgb Hct MCV MCH MCHC RDW Plt Count MPV Neut % (Auto) Lymph % (Auto) [place] % (Auto) Eos % (Auto) Baso % (Auto) Neut # (Auto) Lymph # (Auto) [place] # (Auto) Eos # (Auto) Baso # (Auto) Sodium Potassium Chloride Carbon Dioxide Anion Gap BUN Creatinine Estimated Creat Clear Estimated GFR Est GFR ( Amer) Glucose Hemoglobin A1c Calcium Magnesium Total Bilirubin Direct Bilirubin AST ALT Alkaline Phosphatase Troponin I 0.02 0.02 NT-Pro-B Natriuret Pep Total Protein Albumin Globulin Albumin/Globulin Ratio Triglycerides Cholesterol LDL Cholesterol Direct VLDL Cholesterol HDL Cholesterol Cholesterol/HDL Ratio Chlamy pneumoniae PCR Not detected Adenovirus (PCR) Not detected B. pertussis DNA (PCR) Not detected Coronavirus OC43 (PCR) Not detected Coronavirus HKU1 (PCR) Not detected Coronavirus 229E (PCR) Not detected COVID-19 PCR Not detected Coronavirus NL63 (PCR) Not detected Human Metapneumovir PCR Not detected Influenza A (H1) PCR Not detected Influ A (H1N1/09) PCR Not detected Influenza A (H3) PCR Not detected Influenza Type A (PCR) Not detected Influenza Type B (PCR) Not detected M. pneumoniae (PCR) Not detected Parainfluenza 1 (PCR) Not detected Parainfluenza 2 (PCR) Not detected Parainfluenza 3 (PCR) Not detected Parainfluenza 4 (PCR) Not detected RSV (PCR) Not detected Entero/Rhino (PCR) Not detected 04/19/20 04/19/20 04/20/20 05:28 05:28 07:55 WBC 10.0 D
--- NOTE | 2020-04-21 17:06 | PC.NURSE ---
PT IS READY TO BE DISCHARGED. CURRENT BP IS 150/94. DISCUSSED ALL MEDICATIONS HE WOULD BE TAKING AT HOME DAILY AND PRN. PT HAS ALREADY CALLED FOR A RIDE AND IS VERY THRILLED TO GET TO GO HOME. PT WAS INSTRUCTED THAT HE NEEDED TO FOLLOW UP WITH PCP ON THURSDAY AND WITH CARDIOLOGY IN 1 WEEK.
== END 2020-04-21 17:45 | disposition home or self-care (01) | DRG 286 ==
PROVIDERS: Emergency Medicine; Internal Medicine; Nurse Practitioner Family; Physician Assistant; Admitting Provider Family Medicine; PCP Nurse Practitioner Family; Visit Provider Family Medicine
PROC: B4181ZZ Fluoroscopy of Bilateral Renal Arteries using Low Osmolar Contrast (ICD-10-PCS; principal; 2020-04-19 16:30)
DX: I25.110 Atherosclerotic heart disease of native coronary artery with unstable angina pectoris; I50.33 Acute on chronic diastolic (congestive) heart failure; I11.0 Hypertensive heart disease with heart failure; Z72.0 Tobacco use; I43 Cardiomyopathy in diseases classified elsewhere
CPT/HCPCS: 36252; 36415; 71045; 80048; 80053; 80061; 82248; 83036; 83735; 83880; 84484; 85025; 87581; 87633; 87798; 93005; 93306; 93458; 94761; 99152; C1725; C1769; J1644; Q9967